=== PATIENT | female | born 2000 | race Caucasian/White ===

== ENCOUNTER 2021-09-27 01:05 | Emergency (ER) | payer MEDICAID, OTHER ==
[~2021-09-27] VITALS: Ht 165.1 cm; Wt 66.7 kg
[2021-09-27 02:57] VITALS: BP 126/86
--- NOTE | 2021-09-27 03:00 | NUR ---
TO LOBBY A/W BED AMBULATORY
[2021-09-27] MEDS ORDERED: ACETAMINOPHEN EXTRA STRENGTH 500 MG TAB PO ONE (04:40)
[2021-09-27] MEDS ORDERED: ACET-10509 PO (06:48)
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
--- NOTE | 2021-09-27 08:03 | NUR ---
Patient discharged with v/s stable. Written and verbal after care instructions given and explained. Patient alert, oriented and verbalized understanding of instructions. Ambulatory with steady gait. All questions addressed prior to discharge. ID band removed. Patient advised to follow up with PMD. Rx of TYLENOL EXTRA STRENGTH given. Patient educated on indication of medication including possible reaction and side effects. Opportunity to ask questions provided and answered.
== END 2021-09-27 08:03 | disposition home or self-care (01) ==
LOC: MED 01:05
DX: S63.611A Unspecified sprain of left index finger, initial encounter (principal); S16.1XXA Strain of muscle, fascia and tendon at neck level, initial encounter; Z79.899 Other long term (current) drug therapy; V49.59XA Passenger injured in collision with other motor vehicles in traffic accident, initial encounter; Y93.89 Activity, other specified; Y92.89 Other specified places as the place of occurrence of the external cause; Y99.8 Other external cause status
CPT/HCPCS: 73130; 99283

== ENCOUNTER 2021-11-13 00:34 | Emergency (ER) | payer SELFPAY ==
[~2021-11-13] VITALS: Ht 165.1 cm; Wt 68.0 kg
[~2021-11-13 00:34] MED LIST: ACET-10509 PO
[2021-11-13 00:37] VITALS: BP 129/87
--- NOTE | 2021-11-13 00:40 | NUR ---
PT AMBULATED TO BED #4
[2021-11-13] MEDS ORDERED: NACL 0.9% 1,000 ML IV ONE (00:55)
[2021-11-13] MEDS ORDERED: HALOPERIDOL IM 5 MG/ML VIAL IVP ONE (00:55)
[2021-11-13] MEDS ORDERED: diphenhydrAMINE 50 MG/ML VIAL IVP ONE (00:55)
[2021-11-13 01:36] VITALS: BP 120/85
--- NOTE | 2021-11-13 01:37 | NUR ---
PT SITTING IN BED. HOB ELEVATED. PT SEEMS TO BE LESS NAUSEOUS. PT HEART RATE DECREASING. ALL NEEDS MET AT THIS TIME.
--- NOTE | 2021-11-13 01:53 | NUR ---
WALKED URINE TO LAB
[2021-11-13 02:05] LABS: BARBITURATE, URINE NEGATIVE ng/ml (NEG <=200); BENZODIAZEPINE, URINE NEGATIVE ng/mL (NEG <=200); CANNABINOID, URINE POSITIVE ng/mL (NEG <=50); COCAINE, URINE NEGATIVE ng/mL (NEG <=300); OPIATE, URINE NEGATIVE ng/mL (NEG <=2000); PHENCYCLIDINE SCREEN,URINE NEGATIVE ng/mL (NEG <=25)
[2021-11-13] MEDS ORDERED: ONDA-188 SL (02:17)
--- NOTE | 2021-11-13 02:20 | NUR ---
PT CLEARED FOR DISCHARGE DR. RAM. PT PROVIDED DISCHARGE INSTRUCTIONS AND MEDICATION ADMINISTRATION PROVIDED BY DR. RAM. RX OF ZOFRAN GIVEN.
== END 2021-11-13 02:20 | disposition home or self-care (01) ==
LOC: MED 00:34
DX: R11.2 Nausea with vomiting, unspecified (principal); F12.90 Cannabis use, unspecified, uncomplicated; Z79.899 Other long term (current) drug therapy
CPT/HCPCS: 80305; 96361; 96374; 96375; 99284; J1200; J1630; J7030